=== PATIENT | female | born 1995 | race Caucasian/White ===

== ENCOUNTER 2024-08-12 04:16 | Inpatient (IN) | payer BC ==
[2024-08-12] MEDS ORDERED: Sodium Chloride 0.9% 10 ML Syringe FLUSH PRN (04:31)
[2024-08-12] MEDS ORDERED: Nalbuphine 10 MG/1 ML Vial IVPUSH PRN (04:31)
[2024-08-12] MEDS ORDERED: Lidocaine 1% 50 ML MDV INJECT PRN (04:31)
[2024-08-12 04:55] LABS: BASOPHILS PERCENT AUTO 0.3 % (0.0-1.0); EOSINOPHILS PERCENT AUTO 0.4 % (0.0-6.0); HEMATOCRIT 42.3 % (37.0-47.0); HEMOGLOBIN 14.7 gm/dl (12.0-16.0); IMMATURE GRAN ABSOLUTE AUTO 0.03 K/mm3 (0.00-0.05); IMMATURE GRAN PERCENT AUTO 0.3 % (0.0-0.4); LYMPHOCYTES ABSOLUTE AUTO 1.7 K/mm3 (1.0-4.8); LYMPHOCYTES PERCENT AUTO 16.7 % (24.0-44.0); MEAN CORPUSCULAR HEMOGLOBIN 31.1 pg (28.0-32.0); MEAN CORPUSCULAR HGB CONC 34.8 g/dl (32.0-36.0); MEAN CORPUSCULAR VOLUME 89.6 fl (83.0-99.0); MEAN PLATELET VOLUME 11.6 fl (9.4-12.3); MONOCYTES PERCENT AUTO 9.5 % (0.0-8.0); NEUTROPHILS ABSOLUTE AUTO 7.5 K/mm3 (1.8-7.7); NEUTROPHILS PERCENT AUTO 72.8 % (41.0-71.0); PLATELET COUNT,PLT 128 K/mm3 (150-400); RED BLOOD CELL COUNT 4.72 M/mm3 (4.10-5.30); WHITE BLOOD CELL COUNT,WBC 10.27 K/mm3 (3.9-11.3)
[2024-08-12] MEDS: Lactated Ringers 1,000 ML IV SCH (05:00)
[2024-08-12] MEDS ORDERED: ePHEDrine 50 MG/ML SDV IVPUSH PRN (05:06)
[2024-08-12] MEDS ORDERED: diphenhydrAMINE 50 MG/ML SDV IVPUSH PRN (05:06)
[2024-08-12] MEDS: Ondansetron 4 MG/2 ML SDV IVPUSH PRN (05:09)
[2024-08-12] MEDS: fentaNYL 100 MCG/2 ML SDV EPIDUR PRN (05:14)
[2024-08-12] MEDS: Bupivacaine/fentaNYL/NS 100 ML Bag EPIDUR PRN (05:15)
[2024-08-12] MEDS ORDERED: Bupivacaine 0.25% 10 ML SDV ONE (07:00)
[2024-08-12] MEDS ORDERED: Sodium Chloride 0.9% 10 ML Syringe FLUSH SCH (09:00)
[2024-08-12] MEDS: Oxytocin/0.9 % Sodium Chloride 30 UNIT/500 ML BAG IV SCH (09:43)
[2024-08-12] MEDS ORDERED: Docusate Sodium 100 MG Cap PO PRN (11:58)
[2024-08-12] MEDS ORDERED: Witch Hazel Medicated Pads 40/Jar TOP PRN (11:58)
[2024-08-12] MEDS ORDERED: Benzocaine/Menthol 20%-0.5% Spray 78 GM Cannister TOP PRN (11:58)
[2024-08-12] MEDS: Ibuprofen 600 MG Tab PO SCH ×2 (16:42→23:57)
[2024-08-12] MEDS: Acetaminophen 325 MG Tab PO PRN (16:43)
== END 2024-08-13 13:00 | disposition home or self-care (01) | DRG 560 ==
LOC: JD.OBCHECK 04:16 → JD.OB 04:22 → JD.OBCHECK 04:32 → OBSVTOIN 10:43 → JD.OB 10:44
PROVIDERS: ADMIT Obstetrics & Gynecology; ATTEND Obstetrics & Gynecology
PROC: 10907ZC Drainage of Amniotic Fluid, Therapeutic from Products of Conception, Via Natural or Artificial Opening (ICD-10-PCS; principal; 2024-08-12)
PROC: 10E0XZZ Delivery of Products of Conception, External Approach (ICD-10-PCS; principal; 2024-08-12)
PROC: 3E0R3BZ Introduction of Anesthetic Agent into Spinal Canal, Percutaneous Approach (ICD-10-PCS; principal; 2024-08-12)
PROC: 0HQ9XZZ Repair Perineum Skin, External Approach (ICD-10-PCS; principal; 2024-08-12)
DX: O70.0 First degree perineal laceration during delivery (principal); Z3A.39 39 weeks gestation of pregnancy; Z37.0 Single live birth; Z87.891 Personal history of nicotine dependence
CPT/HCPCS: 36415; 59025; 59409; 85025; 86592; 86850; 86900; 86901; A9270-GY; J0665; J2405; J3010; J3490; J7120; J7999